=== PATIENT | male | born 1965 | race Caucasian/White ===

== ENCOUNTER → 2023-11-17 | Outpatient (CLI) | payer BC | END | disposition home or self-care (01) | LOC: RAH 13:18 | PROVIDERS: ATTEND Family Medicine | DX: K42.9 Umbilical hernia without obstruction or gangrene (principal); K43.9 Ventral hernia without obstruction or gangrene | CPT/HCPCS: 74176 ==

== ENCOUNTER 2024-03-05 10:16 | Day surgery (SDC) | payer BC ==
[2024-02-29 10:41] LABS: POTASSIUM 4.2 mmol/L (3.5-5.1)
[2024-02-29 10:46] LABS: BASOPHILS # (AUTO) 0.02 K/uL (0.00-0.20); BASOPHILS % (AUTO) 0.3 % (0.0-5.0); EOSINOPHILS # (AUTO) 0.19 K/uL (0.00-0.70); HEMATOCRIT 45.9 % (42-54); IMMATURE GRANULOCYTE ABSOLUTE 0.02 K/uL (0-1); LYMPHOCYTES # (AUTO) 2.4 K/uL (1.0-4.8); MEAN CORPUSCULAR HEMOGLOBIN 31.2 pg (27.0-33.0); MEAN CORPUSCULAR HGB CONC 34.9 g/dL (32.0-36.0); MEAN CORPUSCULAR VOLUME 89.5 fL (79-99); MONOCYTES # (AUTO) 0.6 K/uL (0.1-1.0); NEUTROPHILS # (AUTO) 3.2 K/uL (1.8-7.7); NEUTROPHILS % (AUTO) 50.4 % (40.0-77.0); PLATELET COUNT (AUTO) 190 K/uL (130-400); RED BLOOD CELL COUNT(AUTO) 5.13 MIL/uL (4.50-6.20); RED CELL DISTRIBUTION WIDTH 12.2 % (11.0-15.5); WHITE BLOOD COUNT (AUTO) 6.4 K/uL (4.8-10.8)
[2024-02-29 10:55] VITALS: BP 152/84; PULSE 67; RESP 18
[2024-02-29 12:02] LABS: INR 1.01 (0.85-1.15); PROTHROMBIN TIME 10.9 SEC (9.6-11.6)
[2024-02-29 12:03] LABS: PARTIAL THROMBOPLASTIN TIME 27.5 SEC (26.3-35.5)
[~2024-03-05] VITALS: Ht 175.3 cm; Wt 103.9 kg
[2024-03-05] VITALS (14 sets, daily range): BP systolic 142–174; BP diastolic 88–97; PULSE 67–85; RESP 12–20
[~2024-03-05 10:16] MED LIST: DEXAMETHASONE SOD PHOSPHATE 4 MG/ML 1ML VIAL ONE; FENTANYL CITRATE PF 50 MCG/1 ML 2ML VIAL ONE; KETOROLAC 30MG VIAL (30MG/ML) ONE; LIDOCAINE PF 100MG/5ML (2%) SYRINGE 5ML ONE; MIDAZOLAM HCL 1 MG/ML 2ML VIAL ONE; ONDANSETRON 4MG INJ ONE; PROPOFOL 10 MG/ML 20ML VIAL IV ONE; ROCURONIUM BROMIDE 10MG/1ML 5ML VL ONE; ROPIVACAINE 0.5% 5MG/ML 30ML ONE
[2024-03-05] MEDS: CEFAZOLIN SODIUM 2 GM VIAL ONE (10:59)
[2024-03-05] MEDS: CEFAZOLIN SODIUM 1 GM VIAL ONE (10:59)
[2024-03-05] MEDS: LACTATED RINGERS 1000ML 1,000 ML IV ONE (11:00)
[2024-03-05] MEDS ORDERED: DiphenhydrAMINE HCL 50 MG/ML VIAL ONE (11:08)
[2024-03-05] MEDS: CEFAZOLIN SODIUM 3 GM VIAL IVPB ONE (11:08)
[2024-03-05] MEDS ORDERED: KETOROLAC 30MG VIAL (30MG/ML) ONE ×2 (11:27→11:35)
[2024-03-05] MEDS ORDERED: FENTANYL CITRATE PF 50 MCG/1 ML 2ML VIAL ONE (11:27)
[2024-03-05] MEDS ORDERED: GLYCOPYRROLATE 0.2 MG/ML 5 ML VIAL ONE (11:33)
[2024-03-05] MEDS ORDERED: NEOSTIGMINE METHYLSULFATE 1MG/ML IV ONE (11:33)
[2024-03-05] MEDS ORDERED: TRAM50TA4 PO (11:39)
[2024-03-05] MEDS ORDERED: GABA-529 PO (11:39)
[2024-03-05] MEDS ORDERED: DOCU-116 PO (11:39)
[2024-03-05] MEDS ORDERED: METH-662 PO (11:39)
[2024-03-05] MEDS: MEPERIDINE-PF 25 MG/ML SYG ONE (12:14)
== END 2024-03-05 13:35 | disposition home or self-care (01) ==
LOC: DAH 10:16
PROVIDERS: ATTEND Surgery
DX: K43.6 Other and unspecified ventral hernia with obstruction, without gangrene (principal); K42.9 Umbilical hernia without obstruction or gangrene; Z98.890 Other specified postprocedural states; Z82.49 Family history of ischemic heart disease and other diseases of the circulatory system; Z83.3 Family history of diabetes mellitus
CPT/HCPCS: 80048; 85025; 85610; 85730; 86850 ×2; 86900 ×2; 86901 ×2; 36415 ×2; 93005; 49594; 64488; A6260; J1100; A4223 ×2; A4600; A4663; J7030 ×2; J0690 ×3; J7120; J1200; J3010 ×2; J3490 ×2; J2001; J2250; J2704; J2405; J1885 ×3; J2710; J2175; J2795; G0168; A4649 ×3; C1781; A4930 ×3; A4215; A4657; A4213; A4222; A4221

== ENCOUNTER 2024-06-22 12:19 | Emergency (ER) | payer BC ==
[~2024-06-22] VITALS: Ht 175.3 cm; Wt 104.3 kg
[~2024-06-22 12:19] MED LIST changes: -DEXAMETHASONE SOD PHOSPHATE 4 MG/ML 1ML VIAL ONE; +DOCU-116 PO; -FENTANYL CITRATE PF 50 MCG/1 ML 2ML VIAL ONE; +GABA-529 PO; -KETOROLAC 30MG VIAL (30MG/ML) ONE; -LIDOCAINE PF 100MG/5ML (2%) SYRINGE 5ML ONE; +METH-662 PO; -MIDAZOLAM HCL 1 MG/ML 2ML VIAL ONE; -ONDANSETRON 4MG INJ ONE; -PROPOFOL 10 MG/ML 20ML VIAL IV ONE; -ROCURONIUM BROMIDE 10MG/1ML 5ML VL ONE; -ROPIVACAINE 0.5% 5MG/ML 30ML ONE; +TRAM50TA4 PO
[2024-06-22] MEDS: Solu-medROL 125MG VIAL IVP ONE (13:28)
[2024-06-22] MEDS: HYDROcodone/APAP 5/325 1 TAB TABLET PO ONE (13:29)
[2024-06-22] MEDS: ketOROlac 30MG VIAL (30MG/ML) IVP ONE (13:29)
[2024-06-22 13:31] LABS: BASOPHILS # (AUTO) 0.03 K/uL (0.00-0.20); BASOPHILS % (AUTO) 0.4 % (0.0-5.0); EOSINOPHILS # (AUTO) 0.13 K/uL (0.00-0.70); EOSINOPHILS % (AUTO) 1.6 % (0.0-8.0); HEMATOCRIT 46.3 % (42-54); IMMATURE GRANULOCYTE ABSOLUTE 0.03 K/uL (0-1); LYMPHOCYTES # (AUTO) 1.4 K/uL (1.0-4.8); LYMPHOCYTES % (AUTO) 17.3 % (21.0-51.0); MEAN CORPUSCULAR HEMOGLOBIN 31.4 pg (27.0-33.0); MEAN CORPUSCULAR VOLUME 89.7 fL (79-99); MONOCYTES # (AUTO) 0.5 K/uL (0.1-1.0); MONOCYTES % (AUTO) 6.6 % (3.0-13.0); NEUTROPHILS % (AUTO) 73.7 % (40.0-77.0); PLATELET COUNT (AUTO) 224 K/uL (130-400); RED BLOOD CELL COUNT(AUTO) 5.16 MIL/uL (4.50-6.20); RED CELL DISTRIBUTION WIDTH 12.3 % (11.0-15.5); WHITE BLOOD COUNT (AUTO) 8.1 K/uL (4.8-10.8)
[2024-06-22 13:45] LABS: CREATININE 1.3 mg/dL (0.5-1.3); POTASSIUM 4.6 mmol/L (3.5-5.1); URIC ACID 8.4 mg/dL (2.6-7.2)
[2024-06-22] MEDS ORDERED: IBUP-2077 PO (14:44)
[2024-06-22] MEDS ORDERED: DIAZ2TAB PO (14:44)
[2024-06-22] MEDS ORDERED: COLC0.6C3 PO (14:44)
[2024-06-22] MEDS: diazePAM 5 MG/ML 2 ML SYG IVP SCH (14:48)
[2024-06-22 14:55] VITALS: BP 151/94; PULSE 75; RESP 18; TEMP 97.4; O2SAT 95
== END 2024-06-22 15:04 | disposition home or self-care (01) ==
LOC: EDH 12:19
DX: S39.012A Strain of muscle, fascia and tendon of lower back, initial encounter (principal); M10.9 Gout, unspecified; Z79.899 Other long term (current) drug therapy; Z98.890 Other specified postprocedural states; X58.XXXA Exposure to other specified factors, initial encounter; Y93.39 Activity, other involving climbing, rappelling and jumping off; Y92.89 Other specified places as the place of occurrence of the external cause; Y99.8 Other external cause status
CPT/HCPCS: 99284; 96374; 76770; 96375; 84550; 80048; 85025; 36415; J2919; J3360; J1885

== ENCOUNTER → 2024-06-24 | Outpatient (CLI) | payer BC ==
[~2024-06-24] MED LIST changes: +COLC0.6C3 PO; +DIAZ2TAB PO; +IBUP-2077 PO
--- NOTE | 2024-06-24 13:20 | HMCIMG ---
LUMBAR SPINE 2-3VWS HISTORY: Low back pain COMPARISON: None FINDINGS: 3 images of lumbar spine were obtained. Disc space narrowing are seen at L4-5 and L5-S1 levels. Anterior osteophytes are seen. There are degenerative changes with lumbar spine spondylosis. There is straightening of normal lordotic curvature which may be related to muscle spasm or positioning. No loss of vertebral height is seen. No fracture or dislocation is seen. Degenerative changes are seen. IMPRESSION: 1. No fracture is seen. DJD.
== END | disposition home or self-care (01) ==
LOC: RAH 12:21
PROVIDERS: ATTEND Family Medicine
DX: M47.816 Spondylosis without myelopathy or radiculopathy, lumbar region (principal); M48.07 Spinal stenosis, lumbosacral region; M54.50 Low back pain, unspecified
CPT/HCPCS: 72100

== ENCOUNTER → 2024-07-16 | Outpatient (CLI) | payer BC ==
--- NOTE | 2024-07-16 15:33 | HMCIMG ---
MR SPINAL CANAL, LUMBAR WO CON REASON: M54.5 Low back pain COMPARISON: None TECHNIQUE: Routine lumbar imaging protocol was performed. FINDINGS: There are normal-appearing lumbar vertebral bodies. There is mild interspace narrowing at L4-5 and L5-S1, remaining interspaces are preserved. Vertebral body alignment is normal. There are no focal osseous lesions. Axial images show moderate degenerative changes in the facets and ligamentum flavum. There is no focal spinal stenosis. There is no evidence of a focal disc herniation. Neural foramina appear preserved. Surrounding soft tissues appear unremarkable. IMPRESSION: 1. Moderate lumbar degenerative change. 2. No evidence of disc herniation or focal spinal stenosis.
== END | disposition home or self-care (01) ==
LOC: RAH 14:38
PROVIDERS: ATTEND Family Medicine
DX: M47.816 Spondylosis without myelopathy or radiculopathy, lumbar region (principal); M54.50 Low back pain, unspecified
CPT/HCPCS: 72148